=== PATIENT | female | born 1995 | race Caucasian/White ===

== ENCOUNTER 2022-06-25 13:20 | Inpatient (IN) | payer BC, OTHER, SELFPAY ==
[~2022-06-25 13:20] MED LIST: Bupivacaine HCl 0.5%/Epinephrine 1:200,000/PF 30 ml Vial ONE
[2022-06-25] MEDS ORDERED: Ibuprofen 800 MG TAB PO PRN (14:26)
[2022-06-25] MEDS ORDERED: Lactated Ringer's 1,000 ML IV PRN (14:26)
[2022-06-25] MEDS ORDERED: Ondansetron PF 4 MG/2 ML Vial IVP PRN ×2 (14:26→16:57)
[2022-06-25] MEDS ORDERED: HYDROcodone/Acetaminophen 5/325 mg Tablet PO PRN ×4 (14:26→21:02)
[2022-06-25] MEDS ORDERED: hydrALAZINE 20 MG/ML VIAL SLOW IVP PRN ×2 (14:26→21:02)
[2022-06-25] MEDS ORDERED: Misoprostol 200 MCG TAB PR PRN (14:26)
[2022-06-25] MEDS ORDERED: Lidocaine 1% (PF) 30 ML VIAL SC PRN (14:26)
[2022-06-25] MEDS ORDERED: Promethazine HCl 25 MG/ML VIAL IM PRN ×2 (14:26→16:57)
[2022-06-25] MEDS ORDERED: NS w/ Oxytocin 30 units 500 ML IV SCH ×2 (14:30→21:02)
[2022-06-25 14:59] LABS: Hemoglobin 12.9 g/dL (12.0-15.5); Mean Corpuscular HGB CONC 33.9 g/dL (32.0-36.0); Mean Corpuscular Hemoglobin 30.9 pg (27.0-33.0); Mean Corpuscular Volume 90.9 fl (81.6-98.3); Mean Platelet Volume 9.9 fl (7.4-10.4); Platelet Count 259 10x3/uL (150-450); RBC Distribution Width 13.7 % (11.5-14.5); Red Blood Cell (RBC) Count 4.18 10x6/uL (3.90-5.03); White Blood Cell (WBC) Count 15.5 10x3/uL (3.5-10.5)
[2022-06-25 15:35] LABS: Syphilis Antibody Nonreactive (Nonreactive); Syphilis Antibody Index 0.05 S/CO (<1.00 Non-Reactive)
[2022-06-25 15:37] LABS: HBSAg Index 0.17 S/CO (0-0.99); Hep B Surf Ag Non-Reactive S/CO (NonReactive)
[2022-06-25] MEDS ORDERED: Fentanyl 2 mcg/Bup 0.1% Cadd 100 ML ONE (15:49)
[2022-06-25 16:05] LABS: SARS-CoV-2 NAA Rapid Test Not Detected (NotDetected)
[2022-06-25 16:28] VITALS: BMI 36.3
[2022-06-25] MEDS ORDERED: Fentanyl 100 MCG/2 ML VIAL ONE (16:53)
[2022-06-25] MEDS ORDERED: ePHEDrine Sulfate 50 MG/10 ML VIAL SLOW IVP PRN (16:57)
[2022-06-25] MEDS ORDERED: diphenhydrAMINE 50 MG/ML VIAL IVP PRN (16:57)
[2022-06-25] MEDS ORDERED: Naloxone HCl 0.4 mg/ml Vial IVP PRN ×2 (16:57)
[2022-06-25] MEDS ORDERED: Acetaminophen 325 MG TAB PO PRN (16:57)
[2022-06-25] MEDS ORDERED: Moisturizing Cream (Eucerin) 113 GM JAR TOP PRN (16:57)
[2022-06-25] MEDS ORDERED: Communication Order-Pharmacy FS SCH (17:00)
[2022-06-25] MEDS ORDERED: Fentanyl 2 mcg/Bupivacaine 0.1% Cassette 100 ML EPIDURAL SCH (17:00)
[2022-06-25] MEDS ORDERED: Lactated Ringer's 500 ML IV PRN (17:05)
[2022-06-25] MEDS ORDERED: Misoprostol 200 MCG TAB ONE (17:41)
[2022-06-25] MEDS ORDERED: Methylergonovine 0.2 MG/ML VIAL ONE (17:42)
[2022-06-25] MEDS ORDERED: Tranexamic Acid 1,000 MG/10 ML VIAL ONE (17:42)
[2022-06-25] MEDS ORDERED: Bisacodyl 10 MG SUPP PR PRN (21:02)
[2022-06-25] MEDS ORDERED: Misoprostol 200 MCG TAB VAG PRN (21:02)
[2022-06-25] MEDS ORDERED: Boostrix 0.5 ML (Tdap) VIAL (>/=7 yrs of age) IM ONE (21:02)
[2022-06-25] MEDS ORDERED: Benzocaine-Menthol 82.5 ML CAN TOP PRN (21:02)
[2022-06-25] MEDS ORDERED: Milk Of Magnesia 30 ML UDCUP PO PRN (21:02)
[2022-06-25] MEDS: Docusate 100 MG CAP PO SCH (21:53)
[2022-06-25] MEDS: Ibuprofen 800 MG TAB PO SCH (21:53)
[2022-06-26 05:07] LABS: Hemoglobin 10.7 g/dL (12.0-15.5); Mean Corpuscular HGB CONC 34.4 g/dL (32.0-36.0); Mean Corpuscular Hemoglobin 31.4 pg (27.0-33.0); Mean Corpuscular Volume 91.2 fl (81.6-98.3); Mean Platelet Volume 9.9 fl (7.4-10.4); Platelet Count 265 10x3/uL (150-450); RBC Distribution Width 13.8 % (11.5-14.5); Red Blood Cell (RBC) Count 3.41 10x6/uL (3.90-5.03); White Blood Cell (WBC) Count 18.9 10x3/uL (3.5-10.5)
[2022-06-26] MEDS: Ibuprofen 800 MG TAB PO SCH ×3 (05:14→21:10)
[2022-06-26] MEDS: Prenatal Vitamin 1 TAB PO SCH (08:39)
[2022-06-26] MEDS: Docusate 100 MG CAP PO SCH ×2 (08:39→21:10)
[2022-06-26] MEDS: Ferrous Sulfate 325 MG TAB PO SCH ×2 (12:11→14:51)
[2022-06-27] MEDS: Ibuprofen 800 MG TAB PO SCH ×2 (05:16→13:40)
[2022-06-27] MEDS: Prenatal Vitamin 1 TAB PO SCH (07:51)
[2022-06-27] MEDS: Docusate 100 MG CAP PO SCH (07:51)
[2022-06-27 08:04] VITALS: BP 115/56; TEMP 98
[2022-06-27] MEDS: Ferrous Sulfate 325 MG TAB PO SCH (08:15)
== END 2022-06-27 15:25 | disposition home or self-care (01) | DRG 806 ==
LOC: CSHLD 13:20 → CSHPP 20:50
PROVIDERS: ADMIT Obstetrics & Gynecology; ATTEND Obstetrics & Gynecology
PROC: 10E0XZZ Delivery of Products of Conception, External Approach (ICD-10-PCS; principal; 2022-06-25)
PROC: 10907ZC Drainage of Amniotic Fluid, Therapeutic from Products of Conception, Via Natural or Artificial Opening (ICD-10-PCS; 2022-06-25)
PROC: 0HQ9XZZ Repair Perineum Skin, External Approach (ICD-10-PCS; 2022-06-25)
DX: O70.0 First degree perineal laceration during delivery (principal); O72.1 Other immediate postpartum hemorrhage; Z37.0 Single live birth; Z3A.38 38 weeks gestation of pregnancy; Z20.822 Contact with and (suspected) exposure to COVID-19
CPT/HCPCS: 36415; 51702; 85027; 86780; 86850; 86900; 86901; 87340; J2405; J3010; U0002